=== PATIENT | male | born 1940 | race Caucasian/White ===

== ENCOUNTER 2023-05-08 17:09 | Emergency (ER) | payer OTHER, SELFPAY ==
[2023-05-08 17:24] VITALS: BMI 22.3
[2023-05-08 17:25] VITALS: BP 131/59
[2023-05-08 17:44] LABS: Urine Albumin Trace (Neg - Trace); Urine Bilirubin 1+ (Negative); Urine Character Clear (Clear); Urine Color Yellow; Urine Glucose Negative (Negative); Urine Ketone Negative (Negative); Urine Leukocyte Negative (Negative); Urine Nitrite Negative (Negative); Urine Occult Blood Negative (Negative); Urine Urobilinogen Negative (Neg - 1+)
[2023-05-08 17:45] LABS: % Basophils 0.3 % (0-2); % Immature Granulocytes 0.3 % (0-0.5); % Lymphocytes 9.4 % (20.5-51.1); % Monocytes 8.4 % (1.7-9.3); % Neutrophils 80.6 % (42.2-75.2); Absolute Eosinophils 0.1 10^3/uL (0-0.7); Absolute Lymphocytes 0.8 10^3/uL (1.2-3.4); Absolute Monocytes 0.7 10^3/uL (0.1-0.6); Absolute Neutrophils 6.4 10^3/uL (1.4-6.5); Hemoglobin 11.5 g/dL (13.0-18.0); Mean Corp Hgb Conc. 34.8 g/dL (33.0-37.0); Mean Corpuscular Hgb 35.4 pg (27.0-31.0); Mean Corpuscular Volume 101.5 fL (80.0-94.0); Mean Platelet Volume 9.7 fL (7.4-10.4); Nucleated Red Blood Cells % 0 % (-); Platelet Count 182 10^3/uL (130-400); Red Blood Cell Count 3.25 10^6/uL (4.70-6.10); Red Cell Dist. Width 13.1 % (11.5-14.5); White Blood Cell Count 7.9 10^3/uL (4.8-10.8)
--- NOTE | 2023-05-08 17:45 | ED.GENMED ---
History of Present Illness
General
Chief Complaint: Change in Mental Status
Time Seen by Provider: 05/08/23 17:45
Travel History
Have you had any contact with someone who has COVID-19?: Unable to Answer
Do you have any symptoms of coronavirus? Fever > 100 degrees, chills, cough, shortness of breath, sore throat, loss of taste or smell, muscle aches, or headache?: Unable to Answer
History of Present Illness
History of Present Illness:
HPI: Patient comes in by ambulance from [facility]. There is concern for change in his mental status. The patient's daughter is at bedside and tells me he has advanced dementia. He has seemed more somnolent recently. There was
also some concern for left-sided weakness prior to arrival.
EXAM:
GENERAL: Appears in no distress, resting comfortably
HEENT: Moist oral mucosa
CARDIOVASCULAR: Regular rate and rhythm
PULMONARY: No respiratory distress, breathing is nonlabored, equal and clear breath sounds
ABDOMEN: Soft and nontender with no peritoneal signs
NEUROLOGIC: The patient has evidence of dementia, not oriented to month or place, strength is equal in all extremities, no definite facial asymmetry, he is dysarthric/aphasic which daughter states is chronic, I see no unilateral weakness on exam
EXTREMITIES: Weakness noted in all extremities equally, no tenderness, no edema
PYSCHIATRIC: Very limited historian, poor insight and judgment
ED COURSE:
5:50 PM: I initially evaluated patient
NUMBER AND COMPLEXITY OF PROBLEMS ADDRESSED AT THE ENCOUNTER
� Chronic conditions affecting care: Advanced dementia, history of alcohol abuse
� Acute Exacerbation and/or Progression of Chronic Illness: This is an acute problem
� Differential Diagnosis includes: Cute febrile illness, viral syndrome, sepsis/bacteremia, UTI, pneumonia
AMOUNT AND/OR COMPLEXITY OF DATA TO BE REVIEWED AND ANALYZED
� I performed an independent evaluation of and my interpretation is:
EKG:
CT:
X-rays: Chest x-ray suggest some airspace disease at the bases however the patient is positive for influenza
Laboratory Studies: White count normal, lactic normal, chemistries unremarkable, urinalysis shows no sign of
Other:
� Review of other/old records: The patient had a CAT scan of his brain in April 2021 due to a fall with change in mental status which was negative at that time
� Clinical information was obtained by an independent historian: I spoke to the daughter at bedside
� Prescriptions/Medications Considered but not given:
� Further testing considered but not performed:
RISK OF COMPLICATIONS AND/OR MORBIDITY OR MORTALITY OF PATIENT MANAGEMENT
� Social determinants of health affecting care: Lives at [facility]
� Discussion with other providers:
� Escalation of care including admission/observation vs risk of discharge considered: The patient is positive for the flu. He was given IV fluids as well as Tylenol. Overall he has improved while in the ED. His lactic and
white count are normal. He does not appear septic. Of note daughter states that he is 'DNR'. No clear indication for admission to the hospital and daughter agrees at this time. Will discharge back to his facility
Past History
Past History
ED Past Medical History: HTN and Hypercholesterolemia
ED Past Surgical History: Orthopedic
Social History
Tobacco: Former smoker
Alcohol: Daily (Vodka 2 glasses)
Personal:
Living: with family
Phy Exam
Physical Exam
Physical Exam:
See HPI
Course
Orders/Labs/Results
Orders:
Orders
05/08/23 17:29
Electrocardiogram (*1) Urgent
Reason for Study: Other
Other Reason for Exam: Possible Sepsis
EKG- Treatment ONCE
Straight cath- Treatment ONCE
05/08/23 17:30
Blood Culture Q30M
EDUARDO Source: Blood/Venous
Specimen Description:
Comment: FROM 2 SEPARATE SITES
05/08/23 17:32
COVID-19 Antigen Urgent
Source: Nasal Swab
Complete Blood Count/With Diff Urgent
Comprehensive Metabolic Panel Urgent
Lactic Acid Q4H
Comment: ON ICE, CANCEL 2ND ORDER IF FIRST LACTIC ACID LEVEL <2
Urinalysis Reflex To Culture Urgent
Date Specimen was Collected: 05/08/23
Time Specimen was Collected: 17:29
Blood Culture Q30M
EDUARDO Source: Blood/Venous
Specimen Description:
Comment: FROM 2 SEPARATE SITES
Influenza A+B Rapid Molecular Urgent
EDUARDO Source: Nasal Swab
Specimen Description:
Date Specimen was Collected: 05/08/23
Time Specimen was Collected: 17:29
05/08/23 17:49
0.9% Sodium Chloride 1000 ml [Nss] 1,000 ml IV BOLUS
Acetaminophen [Tylenol] 1,000 mg PO NOW STA
05/08/23 17:51
CR Chest Portable - 1 View Urgent
Comment:
Reason For Exam: fever alt ms
Reason Study Needs to be Portable: Patient Unstable
05/08/23 19:48
Oseltamivir Phosphate [Tamiflu] 75 mg PO NOW STA
05/08/23 21:30
Lactic Acid Q4H
Comment: ON ICE, CANCEL 2ND ORDER IF FIRST LACTIC ACID LEVEL <2
Abnormal Lab Results
05/08/23
17:32
RBC 3.25 L 10^6/uL
(4.70-6.10)
Hgb 11.5 L g/dL
(13.0-18.0)
Hct 33.0 L %
(39.0-52.0)
MCV 101.5 H fL
(80.0-94.0)
MCH 35.4 H pg
(27.0-31.0)
Absolute Lymphs (auto) 0.8 L 10^3/uL
(1.2-3.4)
Absolute Monos (auto) 0.7 H 10^3/uL
(0.1-0.6)
Neutrophils % 80.6 H %
(42.2-75.2)
Lymphocytes % 9.4 L %
(20.5-51.1)
BUN 24 H mg/dl
(9-20)
Glucose 107 H mg/dl
(70-99)
Urine Bilirubin 1+ A
(Negative)
05/08/23 17:32
05/08/23 17:32
Vital Signs
Initial and Last Documented VS:
Initial Vital Signs
Temp Pulse Resp BP Pulse Ox
101.2 F H 96 18 131/59 96
05/08/23 17:25 05/08/23 17:25 05/08/23 17:25 05/08/23 17:25 05/08/23 17:25
Last Documented Vital Signs
Temp Pulse Resp BP Pulse Ox
101.2 F H 79 18 131/59 96
05/08/23 17:25 05/08/23 19:15 05/08/23 19:15 05/08/23 17:25 05/08/23 17:25
*Critical Care Note
Total Time (30-74mins, 75-104mins- exclusive of procedures): Not Applicable
ED Attending Note
-
Portions of this chart may have been created with voice recognition software.� Occasional wrong word or��sound alike� substitutions may have occurred due to the inherent limitations of voice recognition software.
Discharge Plan
Departure
Patient Disposition: Home (Routine Discharge)
Date of Disposition: 05/08/23
Time of Disposition: 19:47
Patient with high blood pressure during this ER visit?: Yes
Discharge Problem:
Influenza A
Instructions: Flu, Adult (DC), Altered Mental Status (DC), BLOOD PRESSURE
Prescriptions:
New
oseltamivir [Tamiflu] 75 mg capsule
75 mg PO BID 5 Days Qty: 9 0RF
No Action
atorvastatin 10 MG tablet
10 mg PO DAILY
tamsulosin 0.4 MG capsule
0.4 mg PO HS
cyanocobalamin (vitamin B-12) 1,000 MCG tablet
1,000 mcg PO DAILY Qty: 30 0RF
thiamine HCl (vitamin B1) 100 MG tablet
100 mg PO BID Qty: 30 0RF
aspirin 81 MG tablet,chewable
81 mg PO DAILY Qty: 30 0RF
folic acid 1 MG tablet
1 mg PO DAILY Qty: 30 0RF
cholecalciferol (vitamin D3) 2,000 UNITS tablet
2,000 units PO DAILY Qty: 30 0RF
acetaminophen 325 mg Tablet
650 mg PO Q4H PRN (Reason: mild pain/fever>100.4)
trazodone 50 mg Tablet
50 mg PO HS
risperidone 0.25 mg tablet
0.375 mg PO BID
allopurinol 100 mg tablet
100 mg PO DAILY
acetaminophen 500 mg Tablet
1,000 mg PO BID
alprazolam 0.25 mg tablet
0.25 mg PO Q8H PRN (Reason: anxiety)
duloxetine 20 mg capsule,delayed release(DR/EC)
20 mg PO DAILY
Referrals:
Rodney Norwood MD [Family Provider] -
Activity Restrictions/Additional Instructions:
You are positive for influenza. I strongly recommend Tylenol for fevers. He was given IV fluids. White blood cell count is normal, lactic acid is normal, other chemistry levels are normal. Urinalysis shows no sign of infection. COVID test is
negative.
Interventions
Interventions:
*General Assessment Last Done: 05/08/23 17:53
*ED COVID-19 Vaccine History Last Done: 05/08/23 17:53
ED- Neurological Assessment Last Done: 05/08/23 17:51
ED Swallowing Screen Last Done: 05/08/23 18:35
[2023-05-08] MEDS: NSS 1000 IV (17:54)
[2023-05-08 17:57] LABS: ALT (SGPT) 15 U/L (0-50); AST (SGOT) 36 U/L (17-59); Albumin 3.9 g/dl (3.5-5.0); Alkaline Phosphatase 80 U/L (38-126); Blood Urea Nitrogen 24 mg/dl (9-20); Calcium 8.7 mg/dl (8.4-10.2); Carbon Dioxide 26 mmol/L (22-30); Chloride 104 mmol/L (98-107); Estimated Creatinine Clearance 49 ml/min; Glucose 107 mg/dl (70-99); Potassium 4.3 mmol/L (3.5-5.1); Sodium 136 mmol/L (135-145); Total Bilirubin 0.6 mg/dl (0.2-1.3); Total Protein 6.6 g/dl (6.3-8.2); eGFR > 60.00
[2023-05-08 17:59] LABS: COVID-19 Antigen Negative (Negative)
[2023-05-08 18:11] LABS: Lactic Acid 1.1 mmol/L (0.7-2.0)
[2023-05-08] MEDS: TYLENOL 1000 MG PO (18:32)
[2023-05-08] MEDS: TAMIFLU 75 MG PO (20:39)
== END 2023-05-08 21:42 | disposition home or self-care (01) ==
LOC: EMR 17:09
PROVIDERS: EMERGENCY PHYSICIAN Emergency Medicine; FAMILY PHYSICIAN Family Medicine
DX: J10.1 Influenza due to other identified influenza virus with other respiratory manifestations (principal); R53.1 Weakness; Z11.52 Encounter for screening for COVID-19; R47.01 Aphasia; I10 Essential (primary) hypertension; E78.00 Pure hypercholesterolemia, unspecified; F03.90 Unspecified dementia, unspecified severity, without behavioral disturbance, psychotic disturbance, mood disturbance, and anxiety; F10.11 Alcohol abuse, in remission; Z87.891 Personal history of nicotine dependence; Z79.82 Long term (current) use of aspirin
CPT/HCPCS: 99285; 96360; 51701; 71045; 80053; 81003; 83605; 85025; 87040; 87502; 87811

== ENCOUNTER 2023-05-30 03:15 | Emergency (ER) | payer OTHER, SELFPAY ==
[2023-05-30] VITALS (11 sets, daily range): BP systolic 92–132; BP diastolic 52–80
--- NOTE | 2023-05-30 03:34 | ED.GENMED ---
History of Present Illness
<TEE Bragg - Last Filed: 05/30/23 04:34>
General
Chief Complaint: Fall
Source: ambulance crew
Exam Limitations: dementia
Time Seen by Provider: 05/30/23 03:21
Nursing documentation reviewed up to this point in time: agreed with
Travel History
Have you had any contact with someone who has COVID-19?: Unable to Answer
Do you have any symptoms of coronavirus? Fever > 100 degrees, chills, cough, shortness of breath, sore throat, loss of taste or smell, muscle aches, or headache?: Unable to Answer
History of Present Illness
History of Present Illness:
This is an 82 year old male with a PMH of dementia who reports to the ED via EMS after an unwitnessed fall this evening. Pt is known to wander around at night and was found this evening in another resident's bathroom. It is unknown if patient
sustained a head injury or lost consciousness. Pt is not complaining of any pain or discomfort currently. Pt takes trazodone, risperidone, and xanax.
Past History
<TEE Bragg Last Filed: 05/30/23 04:34>
Past History
ED Past Medical History: HTN and Hypercholesterolemia
ED Past Surgical History: Orthopedic
Social History
Tobacco: Former smoker
Alcohol: Daily (Vodka 2 glasses)
Personal:
Living: longterm
Review of Systems
<TEE Bragg Last Filed: 05/30/23 04:34>
Review of Systems
Allergies reviewed?: Yes
Unable to obtain full review of systems at this time due to: dementia
Other source history: ambulance crew
All Other Systems: ROS reviewed and negative except as documented in HPI and ROS
Phy Exam
<TEE Bragg - Last Filed: 05/30/23 04:34>
General Physical Exam
General Presentation: no apparent distress
General age: appears stated age
General Skin: warm and dry
General Habitus: normal
General Mental: other (somnolent)
General Hydration: appears well hydrated
General Chronic Disability: demented
ENT Exam
ENT Exam: neck supple and normocephalic
Eye Exam
Eye Exam: PERRL
Cardiovascular Exam
Cardiovascular Exam: regular rate/rhythm, no edema and normal peripheral pulses
Pulmonary Exam
Pulmonary Exam: lungs clear, no respiratory distress, no rales, no crackles, no rhonchi and no wheezing
Gastrointestinal Exam
Gastrointestinal Exam: normal bowel sounds, non tender, soft and non distended
Neurological Exam
Neurological Exam: other (pt responds to stimulation but appears drowsy and does not answer questions)
Musculoskeletal Exam
Musculoskeletal Exam: full ROM and no edema
Skin Exam
Skin Exam: normal color, warm/dry and other (ecchymoses noted on right dorsal hand)
Psychiatric Exam
Psychiatric Exam: other (somnolent)
Course
<TEE Bragg - Last Filed: 05/30/23 04:34>
Orders/Labs/Results
Orders:
Orders
05/30/23 03:43
CT Head W/o Iv Contrast Urgent
Comment:
Reason For Exam: fall
Vital Signs
Initial and Last Documented VS:
Initial Vital Signs
Temp Pulse Resp BP Pulse Ox
98.7 F 90 14 117/64 97
05/30/23 03:23 05/30/23 03:23 05/30/23 03:23 05/30/23 03:23 05/30/23 03:23
Last Documented Vital Signs
Temp Pulse Resp BP Pulse Ox
98.7 F 90 14 117/64 97
05/30/23 03:23 05/30/23 03:23 05/30/23 03:23 05/30/23 03:23 05/30/23 03:23
<Beka Aguilera DO - Last Filed: 05/30/23 04:39>
Orders/Labs/Results
Orders:
Orders
05/30/23 03:43
CT Head W/o Iv Contrast Urgent
Comment:
Reason For Exam: fall
Vital Signs
Initial and Last Documented VS:
Initial Vital Signs
Temp Pulse Resp BP Pulse Ox
98.7 F 90 14 117/64 97
05/30/23 03:23 05/30/23 03:23 05/30/23 03:23 05/30/23 03:23 05/30/23 03:23
Last Documented Vital Signs
Temp Pulse Resp BP Pulse Ox
98.7 F 90 14 117/64 97
05/30/23 03:23 05/30/23 03:23 05/30/23 03:23 05/30/23 03:23 05/30/23 03:23
<Beka Aguilera DO - Last Filed: 05/30/23 04:39>
MDM/Problems Addressed
MDM/Problems Addressed:
fall, chronic dementia
<TEE Bragg - Last Filed: 05/30/23 04:34>
*Critical Care Note
Total Time (30-74mins, 75-104mins- exclusive of procedures): Not Applicable
<Beka Aguilera DO - Last Filed: 05/30/23 04:39>
*Radiology
Radiology exam reviewed: preliminary read by ED provider (no ICH)
*Pulse Oximetry
Patient hypoxic: no
*Critical Care Note
Total Time (30-74mins, 75-104mins- exclusive of procedures): Not Applicable
Data Reviewed
Source: records and ambulance crew
Further Testing Considered But Not Given:
Consider C-spine imaging but no obvious tenderness and no obvious head injury
ED Attending Note
<TEE Bragg - Last Filed: 05/30/23 04:34>
-
Portions of this chart may have been created with voice recognition software.� Occasional wrong word or��sound alike� substitutions may have occurred due to the inherent limitations of voice recognition software.
<Beka Aguilera DO - Last Filed: 05/30/23 04:39>
ED Attending Note
Patient seen and examined by attending physician: Yes
I performed a history and physical exam of patient and discussed management with resident, I reviewed resident's note and agree with documented findings and plan of care.: Yes
ED Attending Note:
Seen with student and agree with above. In short 82-year-old male who was found in a another residence bathroom. No signs of trauma. On exam he does not have any signs of head injury. He does have a bony protuberance to the posterior skull but
no swelling or redness. No signs of trauma. Sleepy but is on trazodone. No respiratory distress. CT negative. Vital signs stable. Okay for discharge
Discharge Plan
Departure
Patient Disposition: Home (Routine Discharge)
Date of Disposition: 05/30/23
Time of Disposition: 04:34
Patient with high blood pressure during this ER visit?: No
Discharge Problem:
possible fall
Prescriptions:
No Action
atorvastatin 10 MG tablet
10 mg PO DAILY
tamsulosin 0.4 MG capsule
0.4 mg PO HS
cyanocobalamin (vitamin B-12) 1,000 MCG tablet
1,000 mcg PO DAILY Qty: 30 0RF
thiamine HCl (vitamin B1) 100 MG tablet
100 mg PO BID Qty: 30 0RF
aspirin 81 MG tablet,chewable
81 mg PO DAILY Qty: 30 0RF
folic acid 1 MG tablet
1 mg PO DAILY Qty: 30 0RF
cholecalciferol (vitamin D3) 2,000 UNITS tablet
2,000 units PO DAILY Qty: 30 0RF
acetaminophen 325 mg Tablet
650 mg PO Q4H PRN (Reason: mild pain/fever>100.4)
trazodone 50 mg Tablet
50 mg PO HS
risperidone 0.25 mg tablet
0.375 mg PO BID
allopurinol 100 mg tablet
100 mg PO DAILY
acetaminophen 500 mg Tablet
1,000 mg PO BID
alprazolam 0.25 mg tablet
0.25 mg PO Q8H PRN (Reason: anxiety)
duloxetine 20 mg capsule,delayed release(DR/EC)
20 mg PO DAILY
oseltamivir [Tamiflu] 75 mg capsule
75 mg PO BID 5 Days Qty: 9 0RF
Referrals:
Rodney Norwood MD [Family Provider] -
Activity Restrictions/Additional Instructions:
Possible fall.
Return immediately for changes in mentation, vomiting, weakness of any kind or any other concerns.
Interventions
Interventions:
*Risk Screen - Suicide Last Done: 05/30/23 03:23
*General Assessment Last Done: 05/30/23 03:23
*Neglect/Abuse Screening Last Done: 05/30/23 03:23
ED- Fall Risk Assessment Last Done: 05/30/23 03:31
*ED COVID-19 Vaccine History Last Done: 05/30/23 03:31
ED-Musculoskeletal Assessment Last Done: 05/30/23 03:31
ED- Neurological Assessment Last Done: 05/30/23 03:31
ED-Skin Assessment Last Done: 05/30/23 03:31
== END 2023-05-30 13:30 | disposition home or self-care (01) ==
LOC: EMR 03:15
PROVIDERS: EMERGENCY PHYSICIAN Emergency Medicine; FAMILY PHYSICIAN Family Medicine
DX: Z04.3 Encounter for examination and observation following other accident (principal); F03.90 Unspecified dementia, unspecified severity, without behavioral disturbance, psychotic disturbance, mood disturbance, and anxiety; Z87.891 Personal history of nicotine dependence
CPT/HCPCS: 99284; 70450